=== PATIENT | female | born 1935 | race Caucasian/White ===

== ENCOUNTER 2020-02-02 15:55 | Outpatient (CLI) | payer MEDICARE, SELFPAY ==
--- NOTE | ~2020-02-02 | US_ITS ---
EXAMINATION: US venous doppler [facility] EXAM DATE: 02/02/2020 16:38 INDICATION: Left calf pain. TECHNIQUE: Multiple grayscale, color flow and Doppler images of the left lower extremity deep venous system were obtained and reviewed. There is no prior study for comparison. FINDINGS: The left common femoral, femoral and profunda veins demonstrate normal color flow, respirat ory variation, augmentation and compressibility. Compressibility, color flow confirmed within the le ft popliteal, posterior tibial, peroneal, and greater saphenous veins. 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 IMPRESSION: 1. No left lower extremity deep venous thrombosis. Reviewed, dictated and finalized at location A.
== END 2020-02-02 15:56 | disposition home or self-care (01) ==
LOC: ANHIMG 16:09
PROVIDERS: PCP Nurse Practitioner Adult Health; Visit Provider Nurse Practitioner Adult Health
DX: M79.662 Pain in left lower leg (principal)
CPT/HCPCS: 93971

== ENCOUNTER → 2022-11-23 10:58 | Outpatient (CLI) | payer MEDICARE, SELFPAY ==
--- NOTE | ~2022-11-23 | MR_ITS ---
EXAMINATION: MR lumbar spine wo con DATE: 11/23/2022 11:37 INDICATION: Lumbar radiculopathy TECHNIQUE: Magnetic resonance imaging (MRI) of the lumbar spine was performed without intravenous con trast. Sequences included sagittal T2-weighted FSE, sagittal T2-weighted FS FSE, sagittal T1-weighted FSE, and axial T2-weighted FSE. COMPARISON: None FINDINGS: 17 degree thoracolumbar levoscoliosis with mild rotational component. Sagittal alignment is normal. V ertebral body heights are normal. Severe disc height loss with degenerative endplate changes at L4-L5 . Mild to moderate right-sided predominant disc height loss at L2-L3. Mild disc height loss at L3-L4 and mild right-sided disc height loss at 1201 and L1-L2. Disc desiccation without significant disc he ight loss at L5-S1. Normal bone marrow signal. 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 T he conus medullaris terminates at L2. There is normal signal in the caudal spinal cord. Paravertebral soft tissues are unremarkable. The following disc levels are specifically discussed: T12-L1: Disc is bulging. There is mild right and moderate left facet joint osteoarthritis. There is m inimal bilateral neural foraminal stenosis. There is mild central canal stenosis. L1-L2: Disc is bulging. There is mild to moderate bilateral facet joint osteoarthritis. There is mild bilateral neural foraminal stenosis. There is mild central canal stenosis. L2-L3: Disc is bulging. The previously seen left subarticular zone disc extrusion is no longer identi fied. There is moderate left and mild to moderate right facet joint osteoarthritis. There is mild codi ateral neural foraminal stenosis. There is mild central canal stenosis. L3-L4: Disc is bulging with annular fissure. There is hypertrophy of the ligamentum flavum. There is mild to moderate bilateral facet joint osteoarthritis. There is mild to moderate bilateral neural for aminal stenosis. There is moderate central canal stenosis. L4-L5: Disc is bulging with annular fissure and small endplate osteophytes. There is moderate bilater al facet joint osteoarthritis. There is old right and moderate left neural foraminal stenosis. There is mild central canal stenosis along with narrowing of the left lateral recess. L5-S1: Disc is bulging. There is moderate right and severe left facet joint osteoarthritis. There is mild right and moderate left neural foraminal stenosis. There is mild central canal stenosis. IMPRESSION: 1. Thoracolumbar levoscoliosis with interval progression of severe lumbar spondylosis. Reviewed, dictated and finalized at location A. [facility] IMPRESSION: 1. Thoracolumbar levoscoliosis with interval progression of severe lumbar spond ylosis.
== END ==
PROVIDERS: PCP Nurse Practitioner Family; Visit Provider Nurse Practitioner Family
DX: M54.16 Radiculopathy, lumbar region (principal); M41.85 Other forms of scoliosis, thoracolumbar region; M43.06 Spondylolysis, lumbar region
CPT/HCPCS: 72148

== ENCOUNTER 2023-08-06 00:21 | Day surgery (SDC) | payer MEDICARE, SELFPAY ==
[2023-08-02 08:33] VITALS: BMI 32.0
--- NOTE | 2023-08-03 10:28 | SUR.PREOP ---
Patient called regarding upcoming procedure. Reviewed preop instructions, appointment times, and procedure prep.
[2023-08-06 07:25] VITALS: BP 170/75; PULSE 74; RESP 20; TEMP 36.1; O2SAT 97; BMI 32.2
[2023-08-06] MEDS: LACTATED RINGERS 1,000 ML 150 ML IV CONT (07:42)
--- NOTE | 2023-08-06 08:13 | WPDANESEPPF ---
Anes - Initial Pre Proc Eval Procedure: Operation Date: 08/06/23 08:30 Proposed Procedures p Esophagogastroduodenoscopy - Ben Nation MD Date/Time: 08/06/23 08:13 Surgeon: Ben Nation MD Pre Op Diagnosis: dysphagia Patient Data Age: 88 Gender: F Height: 1.6 m Weight: 82.5 kg Last Vital Signs Temp 96.9 F L 08/06/23 07:25 Pulse 74 08/06/23 07:25 Resp 20 08/06/23 07:25 BP 170/75 H 08/06/23 07:25 Pulse Ox 97 08/06/23 07:25 O2 Del Method Room Air 08/06/23 07:25 Allergies Allergy/AdvReac Type Severity Reaction Status Date / Time Sulfa (Sulfonamide Allergy Unknown Rash Verified 08/06/23 07:24 Antibiotics) NKFA Allergy Unknown Unknown Uncoded 08/06/23 07:24 Home Medications Medication Instructions Recorded Confirmed Type amlodipine 10 mg tablet 10 mg PO DAILY 08/02/23 08/06/23 History aspirin 81 mg tablet 81 mg PO DAILY 08/02/23 08/06/23 History losartan 100 mg tablet 100 mg PO DAILY 08/02/23 08/06/23 History omega 7-bjc-ham-fish oil 60 mg-90 1 cap PO DAILY 08/02/23 08/06/23 History mg-500 mg capsule (Fish Oil) simvastatin 20 mg tablet 20 mg PO DAILY 08/02/23 08/06/23 History Patient hx anesthesia problems: none Family hx anesthesia problems: none Results Review: All pre-operative results and documents have been reviewed as part of the pre-operative evaluation. FOR[facility]LY [facility], [facility] Social History Social History Smoking status: Never smoker Substance use type: does not use Living arrangements: alone Anes - Eval Final PreProcedure Day of Procedure 08/06/23 08:13 Patient weight: obese Heart: regular rate and rhythm Lungs: clear to auscultation Airway: Mallampati scale class III Neurological: alert and oriented Last oral intake: >/= 8 hours ASA classification: III Emergent: no Anesthetic plan: proceed Anesthesia type and monitoring: general GIVS and standard monitoring Results Review: All pre-operative results and documents have been reviewed as part of the pre-operative evaluation. Informed Consent: The patient's anesthetic plan and its attendant risks and benefits were discussed with the patient/family/POA. Questions were solicited and answers provided to the satisfaction of the patient/family/POA.
--- NOTE | 2023-08-06 08:23 | PM.HPGS ---
History of Present Illness History of Present Illness Consent: Risks, benefits, and alternatives have been discussed and questions answered. Patient agrees to proceed with procedure. Chief complaint: epigastric pain Narrative: Gricel Hernandez is a 88 year old female here for post prandial epigastric pain for 1 month, never had egd Review of Systems Constitutional: Constitutional: Denies headache(s) and Denies weakness Eyes: Eyes: Denies blurry vision ENT: Reports Normal hearing present, Denies headache(s) and Denies neck pain Cardiovascular: Cardiovascular: Denies chest pain and Denies dyspnea Respiratory: Respiratory: Denies dyspnea Gastrointestinal: Gastrointestinal: Reports no additional gastrointestinal complaints Genitourinary: Genitourinary: Denies dysuria Musculoskeletal: Musculoskeletal: Denies neck pain Integumentary/Breasts: Skin/Breast: Denies dry skin Neurologic: Reports Normal hearing present, Denies headache(s) and Denies weakness Psychiatric: Psychiatric: Denies anxiety Endocrine: Endocrine: Denies change in body appearance Hematologic/Lymphatic: Hematologic/Lymphatic: Denies easy bleeding Allergic/Immunologic: Allergic/Immunologic: Denies urticaria PMFSH Past Medical History Medical History (Updated 08/06/23 @ 08:24 by Ben Nation MD) Epigastric pain Social History Social History Smoking status: Never smoker Substance use type: does not use Living arrangements: alone Meds Home Medications and Allergies Home Medications Medication Instructions Recorded Confirmed Type amlodipine 10 mg tablet 10 mg PO DAILY 08/02/23 08/06/23 History aspirin 81 mg tablet 81 mg PO DAILY 08/02/23 08/06/23 History losartan 100 mg tablet 100 mg PO DAILY 08/02/23 08/06/23 History omega 9-zjy-zra-fish oil 60 mg-90 1 cap PO DAILY 08/02/23 08/06/23 History mg-500 mg capsule (Fish Oil) simvastatin 20 mg tablet 20 mg PO DAILY 08/02/23 08/06/23 History Allergies Allergy/AdvReac Type Severity Reaction Status Date / Time Sulfa (Sulfonamide Allergy Unknown Rash Verified 08/06/23 07:24 Antibiotics) NKFA Allergy Unknown Unknown Uncoded 08/06/23 07:24 Vital Signs Vital Signs - 24 hr 08/06/23 07:25 Temperature 96.9 F L Pulse Rate 74 Respiratory Rate 20 Blood Pressure 170/75 H Pulse Oximetry 97 Oxygen Delivery Room Air Exam Const: General: comfortable and no acute distress HENMT: Face/Nose/Sinus: Normal nares present Eyes: General: appearance normal, both eyes and all related structures Neck: Neck: no JVD Resp: Auscultation: clear to auscultation bilaterally Cardio: Rate: regular rate Rhythm: regular rhythm GI: Inspection: non-distended GI Palp: Yes Soft to palpation Skin: General skin exam: normal color Neuro: General: gait normal Speech: normal speech Extrem: General: normal to inspection Psych: Mental Status: mental status grossly normal Assessment and Plan Assessment and plan (1) Epigastric pain: Code(s): R10.13 - Epigastric pain Status: Acute Assessment and Plan: egd with bx
[2023-08-06 08:38] VITALS: BP 119/66; PULSE 71; RESP 10; O2SAT 96
[2023-08-06 08:48] VITALS: BP 117/65; PULSE 71; RESP 11; O2SAT 96
[2023-08-06 08:58] VITALS: BP 134/65; PULSE 67; RESP 11; O2SAT 98
== END 2023-08-06 09:09 | disposition home or self-care (01) ==
PROVIDERS: PCP Nurse Practitioner Family; Visit Provider Internal Medicine Gastroenterology
PROC: 0DJ08ZZ Inspection of Upper Intestinal Tract, Via Natural or Artificial Opening Endoscopic (ICD-10-PCS; CPT 43235; principal; 2023-08-06 08:30)
DX: K29.50 Unspecified chronic gastritis without bleeding (principal); K22.2 Esophageal obstruction; K21.00 Gastro-esophageal reflux disease with esophagitis, without bleeding; K44.9 Diaphragmatic hernia without obstruction or gangrene; E66.9 Obesity, unspecified; Z68.32 Body mass index [BMI] 32.0-32.9, adult; Z79.82 Long term (current) use of aspirin
CPT/HCPCS: 43249; 43239; 87081; 88305; C1726; J2704; J7120

== ENCOUNTER 2024-03-05 09:37 | Outpatient (CLI) | payer MEDICARE, SELFPAY ==
[2024-03-05 12:42] LABS: Basophils Absolute Auto 0.1 K/mm3 (0.0-0.1); Basophils Percent Auto 1.7 % (0.2-1.2); Eosinophils Absolute Auto 0.1 K/mm3 (0-0.3); Hematocrit 41.4 % (37.0-47.0); Hemoglobin 13.5 g/dL (12.0-15.0); Immature Granulocyte Absolute 0.04 K/mm3 (0.00-0.031); Immature Granulocyte Percent A 0.6 % (0-0.5); Lymphocytes Percent Auto 17.2 % (18.3-44.2); Mean Corpuscular HGB Conc 32.6 g/dl (32-36); Mean Corpuscular Hemoglobin 30.8 pg (26-34); Mean Corpuscular Volume 94.3 fl (80-100); Mean Platelet Volume 10.2 fl (7.4-10.4); Monocytes Absolute Auto 0.5 K/mm3 (0.1-0.6); Monocytes Percent Auto 7.8 % (2.6-8.5); Neutrophils Absolute Auto 4.5 K/mm3 (1.3-6.7); Neutrophils Percent Auto 70.7 % (45.5-73.1); Platelet Count Result 296 k/mm3 (150-375); Red Blood Count 4.39 M/mm3 (4.2-5.4); Red Cell Distribution Width 13.8 % (11.5-14.5); White Blood Count 6.4 K/mm3 (4.5-10.0)
[2024-03-05 12:58] LABS: Alanine Aminotransferase 11 U/L (6-35); Albumin Level 4.4 g/dL (3.5-5.1); Alkaline Phosphatase 60 U/L (38-126); Anion Gap 7 mmol/L (4-12); Aspartate Amino Transferase 45 U/L (14-36); Bilirubin,Total 0.7 mg/dL (0.2-1.3); Blood Urea Nitrogen 24 mg/dL (7-17); Calcium 9.4 mg/dL (8.4-10.2); Carbon Dioxide 29 mmol/L (22-30); Chloride 106 mmol/L (98-107); Cholesterol 203 mg/dL (0-200); Estimated Glomerular Filt Rate 59; Glucose 88 mg/dL (65-110); HDL Direct 53 mg/dL; Potassium 4.1 mmol/L (3.4-5.0); Sodium 142 mmol/L (137-145); Triglycerides 250 mg/dL (<150)
[2024-03-05 13:09] LABS: LDL Cholesterol Direct 110 mg/dL
[2024-03-05 18:13] LABS: Vitamin D 25 Hydroxy 48.9 ng/mL
== END 2024-03-05 09:38 | disposition home or self-care (01) ==
PROVIDERS: PCP Family Medicine; Visit Provider Nurse Practitioner
DX: E78.2 Mixed hyperlipidemia (principal); I10 Essential (primary) hypertension; E55.9 Vitamin D deficiency, unspecified
CPT/HCPCS: 36415; 80053; 80061; 82306; 85025

== ENCOUNTER 2024-03-24 10:11 | Emergency (ER) | payer MEDICARE, SELFPAY ==
[2024-03-24] VITALS (12 sets, daily range): BP systolic 121–148; BP diastolic 62–65; PULSE 76–93; RESP 18–20; TEMP 36.8; O2SAT 95–99
--- NOTE | ~2024-03-24 | CT_ITS ---
EXAMINATION: CT abdomen pelvis w con DATE: 03/24/2024 14:33 INDICATION: Lower abdominal pain and diarrhea TECHNIQUE: Computed tomography (CT) of the abdomen and pelvis was performed with 100 mL Omnipaque-350 intravenous contrast. Automated exposure control and iterative reconstruction technique were employe d. The dose-length product was 775.70 mGy-cm. COMPARISON: None FINDINGS: Mild dependent atelectasis in the bilateral lower lobes as well as mild left basilar atelectasis juli g the elevated left hemidiaphragm. Heart size is normal. No pericardial or pleural effusion. Moderate -sized sliding-type hiatal hernia. Mild intra and extra hepatic biliary ductal dilation with common b ile duct measuring 8 mm in diameter. There is also mild dilation of the gallbladder measures up to 4. 3 cm with no gallbladder wall thickening or pericholecystic inflammatory stranding to suggest acute c holecystitis. There are few splenic calcific location consistent with old granulomatous disease. Panc reas, bilateral adrenal glands and left kidney are normal. 8 mm right renal cyst. There is moderate c olonic diverticulosis with a sigmoid predominance without focal adjacent inflammatory change to sugge st diverticulitis. There is diffuse wall thickening and associated minimal stranding of the pericolon ic fat throughout the colon consistent with diffuse colitis. Small bowel and appendix are normal. Shad dder is normal. The uterus is not identified and has likely been surgically resected. There is calcif ied atherosclerosis of the normal caliber aorta and many of the other arteries.. 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 No free intraperitoneal gas or fluid. No pathologically enlarged abdominal or pelvic lymphadenopathy. 25 degree thoracolumbar levoscoliosis with severe spon dylosis. IMPRESSION: 1. Diffuse colitis most likely either infectious or inflammatory in etiology. 2. Mild intra and extra hepatic biliary ductal dilation without evident obstructing stone or mass. Co rrelate with liver function tests and could consider further evaluation with MRCP as clinically indic ated. 3. Moderate-sized sliding-type hiatal hernia. 4. 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 Reviewed, dictated and finalized at location B. IMPRESSION: 1. Diffuse colitis most likely either infectious or inflammatory in etiology. 2. Mild intra and extra hepatic biliary ductal dilation without evident obstruc ting stone or mass. Correlate with liver function tests and could consider furt her evaluation with MRCP as clinically indicated. 3. Moderate-sized sliding-type hiatal hernia. 4. 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
--- NOTE | 2024-03-24 13:22 | ED.NAVMDI ---
HPI - Nausea/Vomiting/Diarrhea General Chief complaint: Nausea/Vomiting/Diarrhea Stated complaint: diarrhea since Time Seen by Provider: 03/24/24 12:50 Source: patient, family, RN notes reviewed and old records reviewed Mode of arrival: ambulatory Limitations: no limitations History of Present Illness HPI Narrative: This is an 88 year old female who presents for evaluation of nausea and diarrhea. PAtient lives in a [place] apartment. She reports she developed diarrhea , nausea, and headache on after eating hot dog and desert. She has continued to have multiple episodes of diarrhea today. Her diarrhea was initially all watery and it has gradually thickened to involve stool. She also notes seeing blood only when she wipes. She denies bloody stool in toilet. She is unsure of fever, bloating. She reports nausea and intermittent diffuse abdominal pain. She has come to ER because she can not tolerate her pain any more. She denies pain currently. She denies sick contacts. MD elicited complaint: nausea and diarrhea Related Data Home Medications Medication Instructions Recorded Confirmed aspirin 81 mg tablet 81 mg PO DAILY 08/02/23 02/27/24 losartan 100 mg tablet 100 mg PO DAILY 08/02/23 02/27/24 omega 0-ptu-wes-fish oil 60 mg-90 1 cap PO DAILY 08/02/23 02/27/24 mg-500 mg capsule (Fish Oil) simvastatin 20 mg tablet 20 mg PO DAILY 08/02/23 02/27/24 acrnffng-cbqaenf-mnnq-lutein tablet tablet PO 11/28/23 02/27/24 Allergies Allergy/AdvReac Type Severity Reaction Status Date / Time Sulfa (Sulfonamide Allergy Unknown Rash Verified 03/24/24 10:15 Antibiotics) NKFA Allergy Unknown Unknown Uncoded 03/24/24 10:15 Review of Systems Constitutional: Constitutional: Reports fatigue, Denies fever(s) and Reports weakness ENT: Denies sore throat Cardiovascular: Cardiovascular: Denies chest pain, Denies syncope, Denies rapid heart rate, Denies irregular heart rhythm, Denies leg edema and Denies dyspnea Respiratory: Respiratory: Denies chest congestion, Denies hemoptysis, Denies excessive phlegm production and Denies dyspnea Gastrointestinal: Gastrointestinal: Reports abdominal pain, Denies hematochezia, Reports diarrhea, Reports nausea and Denies vomiting Genitourinary: Genitourinary: Denies hematuria and Denies dysuria Musculoskeletal: Musculoskeletal: Reports back pain, Denies joint swelling, Denies loss of height and Denies muscle weakness Neurologic: Denies syncope, Denies focal weakness and Denies weakness PMFSH Past Medical History Medical History (Updated 03/24/24 @ 15:48 by Narcisa Story MD) Epigastric pain Gastritis determined by endoscopy Hyperlipidemia Hypertension Lumbar spondylosis Surgical History Surgical History H/O: hysterectomy History of bladder surgery Family History Family History Father Lung cancer Social History Social History Smoking status: Never smoker Alcohol intake: current Substance use: never Substance use type: does not use Do You Feel Safe in your Home?: Yes Lack of Transportation: No Lack of Food: Never True Current Housing: I Have Housing Concerned About Future Housing: No Difficulty Paying Gas/Electric Bills: No Difficulty Paying for Meds: No Currently Unemployed: No Education: High School Diploma/GED Difficulty w/ Childcare or Family Care: No Living arrangements: alone Gender identity (if verbalized by the patient): Female Sexual Orientation (if Verbalized by the Patient): Straight or Heterosexual Spiritual care concerns: No Agree to blood products: Yes Exam Const: General: no acute distress and alert Nutritional Appearance: well nourished Orientation/consciousness: patient oriented x3 Limitations: no limitations HENMT: Head: norm
[2024-03-24 13:32] LABS: Basophils Percent Auto 0.5 % (0.2-1.2); Hematocrit 35.3 % (37.0-47.0); Hemoglobin 12.3 g/dL (12.0-15.0); Immature Granulocyte Absolute 0.09 K/mm3 (0.00-0.031); Immature Granulocyte Percent A 1.1 % (0-0.5); Lymphocytes Absolute Auto 0.92 K/mm3 (0.9-3.2); Lymphocytes Percent Auto 11.6 % (18.3-44.2); Mean Corpuscular HGB Conc 34.8 g/dl (32-36); Mean Corpuscular Hemoglobin 31.1 pg (26-34); Mean Corpuscular Volume 89.1 fl (80-100); Mean Platelet Volume 9.5 fl (7.4-10.4); Monocytes Absolute Auto 1.2 K/mm3 (0.1-0.6); Monocytes Percent Auto 15.7 % (2.6-8.5); Neutrophils Absolute Auto 5.6 K/mm3 (1.3-6.7); Neutrophils Percent Auto 71.1 % (45.5-73.1); Platelet Count Result 214 k/mm3 (150-375); Red Blood Count 3.96 M/mm3 (4.2-5.4); Red Cell Distribution Width 13.7 % (11.5-14.5); White Blood Count 7.9 K/mm3 (4.5-10.0)
[2024-03-24] MEDS: ONDANSETRON INJ 4 MG/2 ML VIAL IV PUSH (13:34)
[2024-03-24] MEDS: SODIUM CHLORIDE 0.9% IV 1,000 ML 999 ML IV CONT (13:34)
[2024-03-24 13:46] LABS: Alanine Aminotransferase 18 U/L (6-35); Albumin Level 3.8 g/dL (3.5-5.1); Alkaline Phosphatase 47 U/L (38-126); Anion Gap 8 mmol/L (4-12); Aspartate Amino Transferase 39 U/L (14-36); Bilirubin,Total 0.7 mg/dL (0.2-1.3); Blood Urea Nitrogen 14 mg/dL (7-17); Calcium 9.1 mg/dL (8.4-10.2); Carbon Dioxide 27 mmol/L (22-30); Chloride 97 mmol/L (98-107); Estimated CRCL calculation 39 ml/min; Estimated Glomerular Filt Rate 59; Glucose 102 mg/dL (65-110); Lactic Acid Reflex 1.1 mmol/L (0.7-2.0); Lipase 51 U/L (23-300); Potassium 3.1 mmol/L (3.4-5.0); Sodium 132 mmol/L (137-145)
[2024-03-24 13:52] LABS: Appearance Urine Turbid (Clear); Bacteria Urine 4+ /hpf; Bilirubin Urine 3+ (Negative); Blood Urine 2+ (Negative); Color Urine Dark Yellow (Yellow); Glucose Urine UA Negative (Negative); Ketones Urine Trace mg/dL (Negative); Leukocyte Esterase Ur 3+ LEU/UL (Negative); Need Manual Microscopic Reviewed; Nitrate Urine Positive (Negative); Protein Urine 3+ mg/dL (Negative); RBC Urine 51-100 /hpf (0-2); Specific Grav Ur 1.018 (1.001-1.035); Squamous Epithelial Cell Urine None Seen /hpf (Few); WBC Urine 21-50 /hpf (0-3); pH Urine 6.5 (5.0-9.0)
[2024-03-24 13:54] LABS: Add Urine Microscopic? YES
[2024-03-24 14:06] LABS: Platelet Estimate Adequate (Adequate); Schistocytes None Seen
[2024-03-24] MEDS: POTASSIUM CHLORIDE 20 MEQ ER TABLET 40 MEQ PO (15:15)
== END 2024-03-24 16:09 | disposition home or self-care (01) ==
PROVIDERS: Emergency Provider General Practice; PCP Family Medicine
DX: K52.9 Noninfective gastroenteritis and colitis, unspecified (principal); N39.0 Urinary tract infection, site not specified; E86.0 Dehydration; E87.6 Hypokalemia; I10 Essential (primary) hypertension; E78.5 Hyperlipidemia, unspecified; Z90.710 Acquired absence of both cervix and uterus; Z79.82 Long term (current) use of aspirin; Z79.899 Other long term (current) drug therapy
CPT/HCPCS: 36415; 74177; 80053; 81001; 83605; 83690; 85025; 87045; 87077; 87086; 87088; 87186; 87427; 87449; 96361; 96374; 99284; A9270; J2405; J7030; Q9967

== ENCOUNTER 2024-06-19 10:23 | Outpatient (CLI) | payer MEDICARE, SELFPAY ==
[2024-06-19 13:37] LABS: Basophils Absolute Auto 0.1 K/mm3 (0.0-0.1); Basophils Percent Auto 1.9 % (0.2-1.2); Eosinophils Absolute Auto 0.1 K/mm3 (0-0.3); Eosinophils Percent Auto 2.4 % (0-4.4); Hemoglobin 13.4 g/dL (12.0-15.0); Immature Granulocyte Absolute 0.04 K/mm3 (0.00-0.031); Immature Granulocyte Percent A 0.7 % (0-0.5); Lymphocytes Percent Auto 21.9 % (18.3-44.2); Mean Corpuscular HGB Conc 33.5 g/dl (32-36); Mean Corpuscular Hemoglobin 31.6 pg (26-34); Mean Corpuscular Volume 94.3 fl (80-100); Mean Platelet Volume 10.3 fl (7.4-10.4); Monocytes Absolute Auto 0.5 K/mm3 (0.1-0.6); Monocytes Percent Auto 9.1 % (2.6-8.5); Neutrophils Absolute Auto 3.8 K/mm3 (1.3-6.7); Platelet Count Result 279 k/mm3 (150-375); Red Blood Count 4.24 M/mm3 (4.2-5.4); Red Cell Distribution Width 13.6 % (11.5-14.5); White Blood Count 5.9 K/mm3 (4.5-10.0)
[2024-06-19 13:52] LABS: Alanine Aminotransferase 10 U/L (6-35); Albumin Level 4.5 g/dL (3.5-5.1); Alkaline Phosphatase 71 U/L (38-126); Aspartate Amino Transferase 46 U/L (14-36); Bilirubin,Total 0.6 mg/dL (0.2-1.3)
[2024-06-19 15:08] LABS: Iron 93 ug/dL (37-170)
[2024-06-19 15:17] LABS: Percent Iron Saturation 30 % (20-50)
[2024-06-19 22:47] LABS: Folic Acid > 20.0 ng/mL (2.76->20)
== END 2024-06-19 10:24 | disposition home or self-care (01) ==
LOC: ANHGOSHLAB 10:25
PROVIDERS: PCP Nurse Practitioner; Visit Provider Nurse Practitioner
DX: R74.8 Abnormal levels of other serum enzymes (principal); L65.9 Nonscarring hair loss, unspecified; L60.8 Other nail disorders; I10 Essential (primary) hypertension; R10.13 Epigastric pain
CPT/HCPCS: 36415; 80076; 82607; 82728; 82746; 83540; 83550; 84443; 85025

== ENCOUNTER 2025-02-16 10:59 | Emergency (ER) | payer MEDICARE, SELFPAY ==
--- NOTE | ~2025-02-16 | XR_ITS ---
XR knee RT 3V Ordering provider: Rigo Douglas APRN History: . medial Rt knee pain for 1 week after dancing . Comparison: FINDINGS: BONES: No acute fracture or dislocation. JOINT SPACES: Slight narrowing of the medial compartment. Marginal osteophytes are noted in the knee and patella SOFT TISSUES: Vascular calcification. IMPRESSION: No acute osseous abnormality right knee. Mild osteoarthritic changes. Reviewed, dictated and finalized at location A.
[2025-02-16 11:03] VITALS: BP 174/67; PULSE 72; RESP 16; TEMP 36.8; O2SAT 97
--- NOTE | 2025-02-16 11:38 | ED.EXTPRO ---
HPI - Extremity Problem General Chief complaint: Extremity Problem,Nontraumatic Stated complaint: Knee Pain Time Seen by Provider: 02/16/25 11:25 Source: patient and RN notes reviewed Mode of arrival: ambulatory Limitations: no limitations History of Present Illness HPI Narrative: 89-year-old female presents Express Care complaining of right knee pain. Patient stated the pain started 1 week ago. Patient believe she is over did it to her knee. Patient said she has been dancing a lot at the assisted living that she resides that for daily dancing events. Patient reports having medial knee pain. Patient is able to bear weight on her right leg. Patient says is worse with bending her knee. Patient has been using topical cream and ice without relief for pain. Patient denies any fall or injury to her right knee. Denies any numbness or tingling. Related Data Home Medications Medication Instructions Recorded Confirmed Last Taken Type aspirin 81 mg tablet 81 mg PO DAILY 08/02/23 12/15/24 08/05/23 History omega 0-nte-ycy-fish oil 60 mg-90 1 cap PO DAILY 08/02/23 12/15/24 08/05/23 History mg-500 mg capsule (Fish Oil) cgjbebhe-jjebxwq-cycb-lutein tablet tablet PO 11/28/23 12/15/24 Unknown History ALLERGY RELIEF BYNJUTH 11/04/24 12/15/24 Unknown History b complex BYNJUTH 11/04/24 12/15/24 Unknown History citracal BYNJUTH 11/04/24 12/15/24 Unknown History Allergies Allergy/AdvReac Type Severity Reaction Status Date / Time Sulfa (Sulfonamide Allergy Unknown Rash Verified 02/16/25 11:09 Antibiotics) Review of Systems Review of Systems: CONSTITUTIONAL: Denies fever, chills, or sweats. EYES: Denies visual changes, redness, or discharge. ENT: Denies rhinorrhea, congestion, sore throat, or otalgia. CARDIOVASCULAR: Denies chest pain, palpitations, or edema. RESPIRATORY: Denies cough or dyspnea. GASTROINTESTINAL: Denies abdominal pain, nausea, vomiting, or diarrhea. GENITOURINARY: Denies dysuria or hematuria. SKIN: Denies rash, wound, or itching. MUSCULOSKELETAL: Denies back pain, joint pain, or myalgia. Positive for knee pain NEUROLOGIC: Denies headache, numbness, or weakness. PSYCHIATRIC: Denies anxiety or depression. All other systems reviewed are negative, except as documented in HPI. [facility] Past Medical History Medical History Gastritis determined by endoscopy Hyperlipidemia Lumbar spondylosis Hypertension Epigastric pain Surgical History Surgical History H/O: hysterectomy History of bladder surgery Family History Family History Father Lung cancer Social History Social History Smoking status: Never smoker Alcohol intake: current Substance use: never Substance use type: does not use Do You Feel Safe in your Home?: Yes Lack of Transportation: No Lack of Food: Never True Current Housing: I Have Housing Concerned About Future Housing: No Difficulty Paying Gas/Electric Bills: No Difficulty Paying for Meds: No Currently Unemployed: No Education: High School Diploma/GED Difficulty w/ Childcare or Family Care: No Living arrangements: alone Gender identity (if verbalized by the patient): Female Sexual Orientation (if Verbalized by the Patient): Straight or Heterosexual Spiritual care concerns: No Agree to blood products: Yes Comments At the time of my signature, I reviewed and agree with the nursing past medical, surgical, social, and family history. There is no relevant family history pertinent to the patient complaint. Exam Narrative: GENERAL: This is a well-nourished, well-developed adult, in no apparent distress. They are non ill-appearing, nontoxic appearing. HEAD: normocephalic, atraumatic. EYES: Sclera clear/white. Vision is grossly intact. Conjunctiva normal. Extraocular movement intact. EARS: External ears normal Hearing grossly intact. NOSE: External nose normal THROAT: Mucous membranes moist NECK: Neck supple CARDIOVASCULAR: Regular rate and rhythm RESPIRATORY: Respiratory rate normal, respiratory effort nonlabored, no respiratory distress NEURO: awake, alert, and oriented to person, place and time. There were no obvious focal neurologic abnormalities. EXTREMITIES: Right knee No obvious deformity, injury, swelling, bruising, redness. Mild pain with Normal range of motion of knee. No bony tenderness. Capillary refill less than 3 seconds. Right Pedal pulse Pulse 2 +palpable. Normal sensation. Neurovascular status intact distal injury. No valgus or varus laxity. No palpable cord. BACK: Nontender without deformity. Course Course Emergency Course: Portions of this record may have been created with voice recognition software Level of Care: Express Care Visit Vital Signs Vital signs: Vital Signs Temperature 98.2 F 02/16/25 11:03 Pulse Rate 72 02/16/25 11:03 Respiratory Rate 16 02/16/25 11:03 Blood Pressure 174/67 H 02/16/25 11:03 Pulse Oximetry 97 02/16/25 11:03 Oxygen Delivery Room Air 02/16/25 11:03 Temperature 98.2 F 02/16/25 11:03 Pulse Rate 72 02/16/25 11:03 Respiratory Rate 16 02/16/25 11:03 Blood Pressure 174/67 H 02/16/25 11:03 Pulse Oximetry 97 02/16/25 11:03 Oxygen Delivery Room Air 02/16/25 11:03 Reviewed MDM - Extremity (Nontraumatic) MDM Narrative Medical decision making narrative: X-ray showed no evidence of fracture or effusion or any other acute findings. Mild arthritis changes were noted to the x-ray. Likely patient has strained her right knee from dancing. Patient given Alexsander wrap for comfort. Discussed physical exam findings. Advised supportive measures and signs/symptoms to go to the ER. Pt is appropriate for outpt treatment and f/u. Differential Diagnosis Differential diagnosis: Likely other (Knee strain, arthritis, fracture, ligament injury) Imaging Data Radiologist's impression: ITS Impressions Knee X-Ray 02/16/25 11:46 IMPRESSION: No acute osseous abnormality right knee. Mild osteoarthritic changes. Critical Care Time Critical Care Time Critical Care Time: No Discharge Plan Discharge Clinical Impression: Knee injury Qualifiers: Encounter type: initial encounter Laterality: right Qualified Code(s): S89.91XA - Unspecified injury of right lower leg, initial encounter Patient Disposition: Home Condition: Stable Instructions: Knee Pain (ED) Additional Instructions: Your x-ray was negative for any fractures or any other acute findings. There is mild arthritis changes noted in the x-ray. Rest and elevate the leg; bear weight as tolerated Apply ice 15-20 minute intervals several times a day Keep keep her knee wrapped with an Alexsander wrap for compression. Who you may take Tylenol or ibuprofen as needed for pain. Follow up with your primary care provider or an orthopedist as needed in 1-2 weeks if pain persists. Patient Language: Japanese Prescriptions: No Action rcqnpspa-qzmsyoj-dplx-lutein Tablet PO b complex BYMOUTH citracal BYMOUTH ALLERGY RELIEF BYMOUTH omeprazole 40 mg capsule,delayed release(DR/EC) 40 mg PO .daily 90 Days Qty: 90 4RF Adult Aspirin 81 mg Tablet 81 mg PO DAILY omega 0-wxf-zhe-fish oil [Fish Oil] 60-90-500 mg Capsule 1 cap PO DAILY losartan 100 mg tablet 100 mg PO DAILY Qty: 90 1RF simvastatin 20 mg tablet See Rx Instructions .ROUTE .COMPLEX Qty: 90 1RF Dose Instruction: TAKE 1 TABLET BY MOUTH EVERY DAY Rx Instructions: TAKE 1 TABLET BY MOUTH EVERY DAY amlodipine 10 mg tablet See Rx Instructions .ROUTE .COMPLEX Qty: 90 1RF Dose Instruction: TAKE 1 TABLET BY MOUTH EVERY DAY Rx Instructions: TAKE 1 TABLET BY MOUTH EVERY DAY Follow-up/Referrals: Jenise Flannery NP [Primary Care Provider] - Caleb Chung MD [Physician] - Time of Disposition: 12:00
== END 2025-02-16 12:09 | disposition home or self-care (01) ==
PROVIDERS: PCP Nurse Practitioner
DX: S89.91XA Unspecified injury of right lower leg, initial encounter (principal); X50.3XXA Overexertion from repetitive movements, initial encounter; Y93.41 Activity, dancing; I10 Essential (primary) hypertension; E78.5 Hyperlipidemia, unspecified; M47.816 Spondylosis without myelopathy or radiculopathy, lumbar region; Z79.82 Long term (current) use of aspirin
CPT/HCPCS: 73562; 99213; G0463

== ENCOUNTER 2025-05-15 13:09 | Emergency (ER) | payer MEDICARE, SELFPAY ==
[2025-05-15 13:20] VITALS: BP 131/56; PULSE 71; RESP 16; TEMP 36.6; O2SAT 98
--- NOTE | 2025-05-15 13:41 | ED_ITS ---
HPI - Skin/Abscess/Foreign Bdy General Chief complaint: Skin/Abscess/Foreign Body Stated complaint: RASH Time Seen by Provider: 05/15/25 13:33 Source: patient and RN notes reviewed Mode of arrival: ambulatory Limitations: no limitations History of Present Illness HPI narrative: Patient presents today complaining of itching and irritation to the left frontal scalp, left lower forehead, left upper eyelid, and left nose since yesterday. Reports it feels like her hair hurts. Denies any vision changes. No OTC treatment prior to arrival. She has had shingles vaccine Related Data Home Medications ?Medication ?Instructions ?Recorded ?Confirmed ?Last Taken ?Type aspirin 81 mg tablet 81 mg PO DAILY 08/02/23 04/07/25 08/05/23 History omega 6-hrf-cws-fish oil 60 mg-90 1 cap PO DAILY 08/02/23 04/07/25 08/05/23 History mg-500 mg capsule (Fish Oil) rwnfvjxc-lkrlrzy-kttr-lutein tablet tablet PO 11/28/23 04/07/25 Unknown History ALLERGY RELIEF BYDCUTH 11/04/24 04/07/25 Unknown History b complex BYDCUTH 11/04/24 04/07/25 Unknown History citracal BYDCUTH 11/04/24 04/07/25 Unknown History finasteride 5 mg tablet mg 05/15/25 Unknown History Allergies Allergy/AdvReac Type Severity Reaction Status Date / Time Sulfa (Sulfonamide Allergy Unknown Rash Verified 05/15/25 13:27 Antibiotics) [facility] Past Medical History Medical History Gastritis determined by endoscopy Hyperlipidemia Lumbar spondylosis Hypertension Epigastric pain Surgical History Surgical History H/O: hysterectomy History of bladder surgery Family History Family History Father Lung cancer Social History Social History Smoking status: Never smoker Alcohol intake: current Substance use: never Substance use type: does not use Do You Feel Safe in your Home?: Yes Lack of Transportation: No Lack of Food: Never True Current Housing: I Have Housing Concerned About Future Housing: No Difficulty Paying Gas/Electric Bills: No Difficulty Paying for Meds: No Currently Unemployed: No Education: High School Diploma/GED Difficulty w/ Childcare or Family Care: No Living arrangements: alone Gender identity (if verbalized by the patient): Female Sexual Orientation (if Verbalized by the Patient): Straight or Heterosexual Spiritual care concerns: No Agree to blood products: Yes Comments At time of signature, I have reviewed and agree with nursing past medical, surgical, social and family history unless otherwise noted. Please see nursing chart for further information. There is no relevant family history pertinent to the presenting complaint Exam Narrative: GENERAL: Well-appearing, well-nourished, and in no acute distress. HEAD: Normocephalic, atraumatic. EYES: EOMI. PERRL. No redness or drainage. Conjunctivae normal. ENT: Mucous membranes pink and moist.. NECK: Normal AROM. CHEST: No respiratory distress. EXTREMITIES: Normal range of motion. No edema. SKIN: Warm, dry. Capillary refill normal. Normal skin turgor. Faint pink, raised lesion in the left frontal hairline. Skin colored slightly raised lesions to the left forehead. Mildly pink tinge to the left eyelid without rash. Faintly erythematous raised lesion to the tip of the left side of the nose. NEURO: No focal deficits. Alert and oriented x3. Gait steady. PSYCH: Normal affect. No signs of depression or anxiety. Course Course Level of Care: Express Care Visit Vital Signs Vital signs: Vital Signs Temperature 98 F 05/15/25 13:20 Pulse Rate 71 05/15/25 13:20 Respiratory Rate 16 05/15/25 13:20 Blood Pressure 131/56 L 05/15/25 13:20 Pulse Oximetry 98 05/15/25 13:20 Temperature 98 F 05/15/25 13:20 Pulse Rate 71 05/15/25 13:20 Respiratory Rate 16 05/15/25 13:20 Blood Pressure 131/56 L 05/15/25 13:20 Pulse Oximetry 98 05/15/25 13:20 Reviewed MDM - Skin/Abscess/Foreign Bdy MDM Narrative Medical decision making narrative: Any 9-year-old female patient with tender lesions to the scalp and face since yesterday. No OTC treatment prior to arrival. Very faint lesions to the left scalp, forehead, and nose. when considered all together, is likely the beginning of a shingles outbreak. Patient will be placed on a course of valacyclovir and recommend to follow-up with an eye doctor next week to ensure that she does not developed keratitis. Patient states she has an eye doctor appointment either next week or the week after. Instructed to leave it up to next week if it is scheduled later. Patient agrees with plan. Anticipatory guidance given. Vital signs stable. Differential Diagnosis Differential diagnosis: Likely viral exanthem, dermatophytosis, urticaria, herpes zoster, cellulitis, eczema and contact dermatitis Critical Care Time Critical Care Time Critical Care Time: No Discharge Plan Discharge Clinical Impression: Shingles Qualifiers: Herpes zoster complications: without complications Qualified Code(s): B02.9 - Zoster without complications Patient Disposition: Home Condition: Stable Instructions: Shingles (ED) Additional Instructions: Your rash may be due to shingles. Please start the valacyclovir as prescribed. As discussed, please follow-up with your eye doctor next week for evaluation of your eye. Take Tylenol for pain if needed. Your blood pressure was elevated above 120/80 today at Urgent Care. This puts you above the threshold for follow up. Please schedule a followup visit with your personal physician as soon as possible, for further evaluation and treatment. Even blood pressure exceeding 120/80 may indicate pre-hypertension. Patient Language: Andorran Prescriptions: New valacyclovir 1 gram tablet 1,000 mg PO TID 7 Days Qty: 21 0RF No Action finasteride 5 mg tablet xjqggtmv-gupedqy-gals-lutein Tablet PO b complex BYMOUTH citracal BYMOUTH ALLERGY RELIEF BYMOUTH omeprazole 40 mg capsule,delayed release(DR/EC) 40 mg PO .daily 90 Days Qty: 90 4RF aspirin [Adult Aspirin] 81 mg Tablet 81 mg PO DAILY omega 9-uyh-kqh-fish oil [Fish Oil] 60-90-500 mg Capsule 1 cap PO DAILY simvastatin 20 mg tablet See Rx Instructions .ROUTE .COMPLEX Qty: 90 1RF Dose Instruction: TAKE 1 TABLET BY MOUTH EVERY DAY Rx Instructions: TAKE 1 TABLET BY MOUTH EVERY DAY amlodipine 10 mg tablet See Rx Instructions .ROUTE .COMPLEX Qty: 90 1RF Dose Instruction: TAKE 1 TABLET BY MOUTH EVERY DAY Rx Instructions: TAKE 1 TABLET BY MOUTH EVERY DAY losartan 100 mg tablet 100 mg PO DAILY Qty: 90 1RF Follow-up/Referrals: Jenise Flannery NP [Primary Care Provider] - Time of Disposition: 13:43
== END 2025-05-15 13:46 | disposition home or self-care (01) ==
PROVIDERS: Emergency Provider Nurse Practitioner; PCP Nurse Practitioner
DX: B02.9 Zoster without complications (principal); I10 Essential (primary) hypertension; E78.5 Hyperlipidemia, unspecified; M47.816 Spondylosis without myelopathy or radiculopathy, lumbar region; Z79.82 Long term (current) use of aspirin
CPT/HCPCS: 99213; G0463

== ENCOUNTER 2025-06-29 10:03 | Outpatient (CLI) | payer MEDICARE, SELFPAY ==
--- OUTSIDE RECORDS SUMMARY | 2010-07-07 04:15 | XMS_ITS | Continuity of Care Document ---
Author Organization [facility] Address [address] [address] [place] [address] Phone Care Team Providers Care Combination Worker Name Role Phone Allen OD, Thor Unavailable Unavailable Procedures Procedure Date Eye Exam & Treatment Refraction Eye Exam & Treatment Refraction Advance Directives Directive Yes / No Effective Date File Name No Information Encounters Encounter Description Practice Location Reason(s) For Visit Diagnoses Date Provider Providers Copied on Encounter [facility], [id number] [place] [address] [address], [place], [place], [id number], tel:[phone] [facility] No Information 7-201 0 Allen OD Thor. [address] , [address], [place], [place], [facility], [place]. tel:[phone] [facility], [address] [place] [address] [address], [place], [place], [id number], tel:[phone] [facility] No Information 5-200 8 Allen OD Thor. [address] , [address], [place], [address], [place]. tel:[phone] Family History Family Member Type Diagnosis Age At Onset No Information Payers Payer name Insurance type Covered constitution party ID Authoriza tion(s) [place] [id number] Social History Type Description Quantity Date Captured Comments Sex Female Smoking Status No Information Chief Complaint And Reason For Visit No Information Reason For Referral Reason For Referral No Information History Of Present Illness Encounter Date Complaint History Of Prese nt Illness No Information Functional Status Date Functional Assessmen t No Information Instructions Date Instruction Additional Infor mation No Information Assessments Type Assessment Date No Information Patient Care Teams Name Effective Dates (start - stop) Status Members No Information
[2025-06-29 13:01] LABS: Hematocrit 40.6 % (37.0-47.0); Hemoglobin 13.2 g/dL (12.0-15.0); Immature Granulocyte Percent A 0.5 % (0-0.5); Lymphocytes Absolute Auto 1.32 K/mm3 (0.9-3.2); Mean Corpuscular HGB Conc 32.5 g/dl (32-36); Mean Corpuscular Hemoglobin 30.8 pg (26-34); Mean Corpuscular Volume 94.9 fl (80-100); Nucleated Red Blood Cells Absolute Auto 0.000 K/mm3 (0.0-0.012); Nucleated Red Blood Cells Perc 0.0 % (0.0-0.2); Platelet Count Result 298 k/mm3 (150-375); Red Blood Count 4.28 M/mm3 (4.2-5.4); White Blood Count 5.9 K/mm3 (4.5-10.0)
[2025-06-29 13:09] LABS: Alanine Aminotransferase 10 U/L (6-35); Albumin Level 4.1 g/dL (3.5-5.1); Alkaline Phosphatase 63 U/L (38-126); Anion Gap 6 mmol/L (4-12); Aspartate Amino Transferase 42 U/L (14-36); Bilirubin,Total 0.7 mg/dL (0.2-1.3); Blood Urea Nitrogen 19 mg/dL (7-17); Calcium 9.0 mg/dL (8.4-10.2); Carbon Dioxide 29 mmol/L (22-30); Chloride 105 mmol/L (98-107); Cholesterol 197 mg/dL (0-200); Estimated Glomerular Filt Rate 59; Glucose 87 mg/dL (65-110); HDL Direct 52 mg/dL; Magnesium 2.1 mg/dL (1.6-2.3); Potassium 4.0 mmol/L (3.4-5.0); Sodium 140 mmol/L (137-145); Total Protein 7.0 g/dL (6.3-8.2); Triglycerides 210 mg/dL (<150)
[2025-06-29 13:46] LABS: Thyroid Stimulating Hormone 2.040 uIU/mL (0.465-4.680)
== END 2025-06-29 10:04 | disposition home or self-care (01) ==
LOC: ANHGOSHLAB 10:04
PROVIDERS: PCP Internal Medicine; Visit Provider Nurse Practitioner
DX: R07.9 Chest pain, unspecified (principal); I10 Essential (primary) hypertension; E78.2 Mixed hyperlipidemia; E55.9 Vitamin D deficiency, unspecified
CPT/HCPCS: 36415; 80053; 80061; 82306; 83735; 84443; 85025

== ENCOUNTER 2025-07-10 08:06 | Outpatient (CLI) | payer MEDICARE, SELFPAY ==
--- NOTE | ~2025-07-10 | NM_ITS ---
EXAMINATION: NM michael stress w perfusion DATE: 07/10/2025 11:34 INDICATION: Chest pain TECHNIQUE: Rest images were obtained following intravenous administration of 11.2 mCi Tc99m tetrofosmin (Myoview). The patient was infused intravenously with Lexiscan (Regadenoson). Then, 33.7 mCi Tc99m tetrofosmin (Myoview) was administered intravenously, and stress images were obtained. Data was dominick nstructed into short axis and horizontal and vertical long axis SPECT images. Gated SPECT images were also obtained. COMPARISON: None. FINDINGS: There is no definite reversible or fixed perfusion abnormality to suggest ischemia or infarction. There is normal left ventricular chamber size, wall motion and ejection fraction. Left ventricular ejection fraction measures >70%. IMPRESSION: 1. Normal myocardial perfusion at rest and during stress. 2. Left ventricular ejection fraction measuring >70%. Reviewed, dictated and finalized at location A.
--- OUTSIDE RECORDS SUMMARY | 2025-07-10 08:10 | XMS_ITS | Data Portability ---
Author Organization [facility], Main Office Address [address] [place] [address] Care Team Providers Care Box Office Agent Name Role Phone AZIZA HERNANDEZ Primary Care Provider AZIZA HERNANDEZ Referring Provider [phone] Assessment No assessment recorded. Plan of Treatment Reminders Order Date Submit Date Provider Last Modified By Organization Details Last Modified Time Details Appointments None recorded. Lab BMP, serum or plasma 2022 023 [facility] Add On Lab Orders, [address] [place], [address], 3 20:56:16 lipid panel, serum 2022 023 [facility] Add On Lab Orders, [address] [place], [address], 3 20:56:22 hepatic function panel, serum 2022 023 [facility] Add On Lab Orders, [address] [place], [address], 3 20:56:26 BMP, serum or plasma 2022 023 [facility] Add On Lab Orders, [address] [place], [address], 3 14:19:13 lipid panel, serum 2022 023 [facility] Add On Lab Orders, [address] [place], [address], 3 14:19:03 hepatic function panel, serum 2022 023 [facility] Add On Lab Orders, [address] [place], [address], 3 14:19:08 Referral gastroenter ologist referral - pain in chest and upper abd with swallowing. May need EGD. 2022 023 MAYRA pena MD, [address], [address], [place], [address], 09:28:56 Procedures None recorded. Surgeries None recorded. Imaging None recorded. Medication Orders None recorded. Patient TargetsNo targets recorded. Patient Instructions Encounter Date Encounter Id Patient Instructions Last Modified By Organization Details Last Modified Time 01/10/2023 [id number] mo fu CKD, htn , arthritis, swelling in legs, Lipid. Not available 01/10/2023 13:09:14 07/18/2023 [id number] mo fu CKD, htn , arthritis, swelling in legs, Lipid. Not available 07/18/2023 14:22:34 Reason for Referral Past[employer] Referral for Swallowing painful pain in chest and upper abd with swallowing. May need EGD. Referring Physician: Aziza Hernandez, Family Medicine, Encounter Date: 07/18/2023 Results Created Date Observation Date Name Description Value Unit Range Abnormal Flag Note LastModifiedBy Organization Detail LastModifiedTime 02/08/2002/07/2023 LIPID PANEL cholesterol 170 mg/dL 140-19 9 [facility] NSUS RECOM MENDA TION FOR MICHELLE STERO L: ADULT CHILD LOW RISK: <200 <170 BORDE RLINE : <200- 239 ----- HIGH RISK: >240 >200 Not Available [facility] (Lab) [address] [place], [address], 02/07/2023 14:19:03 02/08/20 23 02/07/2023 LIPID PANEL triglyceride s 139 mg/dL 0-150 [facility] NSUS REPOR T RECOM MENDA TION FOR TRIGL YCERI ATIF: ADULT CHILD LOW RISK: <150 ----- BODER LINE: 150-1 99 ----- HIGH RISK: >200 ----- Not Available [facility] (Lab) [address] [place], [address], 02/07/2023 14:19:03 02/08/20 23 02/07/2023 LIPID PANEL HDL cholesterol 60 mg/dL 40- Not Available [facility] (Lab) [address] [place], [address], 02/07/2023 14:19:03 02/08/2002/07/2023 LIPID PANEL LDL cholesterol, calculated 82 mg/dL 0-130 [facility] GOY[facility] NSUS REPOR T RECOM MENDA TIONS FOR LDL: ADULT CHILD LOW RISK <130 <110 (OPTI MAL LDL) <100 ----- WILMAN RLINE : 130-1 59 ----- HIGH RISK: >160 >130 A TRIGL YCERI DE RESUL T >400 INVAL IDATE S THE CALCU LATIO N FOR LDL FRACT IONAT ION - THE LDL RESUL T WILL NOT BE REPOR RICHI. Not Available [facility] (Lab) [address] [place], [address], 02/07/2023 14:19:03 02/08/20 23 02/07/2023 HEPAT IC/LI PAVITHRA PANEL alkaline phosphatase 57 U/L 38-126 Not Available [facility] (Lab) [address] [place], [address], 02/07/2023 14:19:08 02/08/20 23 02/07/2023 HEPAT IC/LI PAVITHRA PANEL alanine aminotransfe rase 12 U/L 0-35 Not Available [facility] (Lab) [address] [place], [address], 02/07/2023 14:19:08 02/08/20 23 02/07/2023 HEPAT IC/LI PAVITHRA PANEL aspartate aminotransfe rase 24 U/L 15-37 Not Available [facility] (Lab) [address] [place], [address], 02/07/2023 14:19:08 02/08/20 23 02/07/2023 HEPAT IC/LI PAVITHRA PANEL bilirubin, total 0.40 mg/dL 0.20-1 .30 Not Available [facility] (Lab) [address] [place], [address], 02/07/2023 14:19:08 02/08/20 23 02/07/2023 HEPAT IC/LI PAVITHRA PANEL bilirubin, conjugated (direct) 0.00 mg/dL 0.00-0 .30 Not Available [facility] (Lab) [address] [place], [address], 02/07/2023 14:19:08 02/08/20 23 02/07/2023 HEPAT IC/LI PAVITHRA PANEL biliurubin,u ncong. (indirect) 0.20 mg/dL 0.00-1 .1 Not Available [facility] (Lab) [address] [place], [address], 02/07/2023 14:19:08 02/08/20 23 02/07/2023 HEPAT IC/LI PAVITHRA PANEL total protein 6.6 g/dL 6.3-8. 2 Not Available [facility] (Lab) [address] [place], [address], 02/07/2023 14:19:08 02/08/20 23 02/07/2023 HEPAT IC/LI PAVITHRA PANEL albumin 4.1 g/dL 3.0-4. 4 Not Available [facility] (Lab) [address] [place], [address], 02/07/2023 14:19:08 02/08/20 23 02/07/2023 HEPAT IC/LI PAVITHRA PANEL globulin 2.5 g/dL 2.6-4. 2 low Not Available [facility] (Lab) [address] [place], [address], 02/07/2023 14:19:08 02/08/20 23 02/07/2023 HEPAT IC/LI PAVITHRA PANEL A/G ratio 1.6 ratio 1.0-2. 0 Not Available [facility] (Lab) [address] [place], [address], 02/07/2023 14:19:08 02/08/20 23 02/07/2023 BASIC METAB OLIC PANEL sodium 142 mmol/ L 137-14 5 Not Available [facility] (Lab) [address] [place], [address], 02/07/2023 14:19:13 02/08/20 23 02/07/2023 BASIC METAB OLIC PANEL potassium 4.3 mmol/ L 3.5-5. 1 Not Available [facility] (Lab) [address] [place], [address], 02/07/2023 14:19:13 02/08/20 23 02/07/2023 BASIC METAB OLIC PANEL chloride 108 mmol/ L 98-107 high Not Available [facility] (Lab) [address] [place], [address], 02/07/2023 14:19:13 02/08/20 23 02/07/2023 BASIC METAB OLIC PANEL carbon dioxide 26 mmol/ L 22-30 Not Available [facility] (Lab) [address] [place], [address], 02/07/2023 14:19:13 02/08/20 23 02/07/2023 BASIC METAB OLIC PANEL anion gap 12.3 mmol/ L 14-22 low Not Available [facility] (Lab) [address] [place], [address], 02/07/2023 14:19:13 02/08/20 23 02/07/2023 BASIC METAB OLIC PANEL glucose 95 mg/dL 70-99 Not Available [facility] (Lab) [address] [place], [address], 02/07/2023 14:19:13 02/08/2002/07/2023 BASIC METAB OLIC PANEL BUN 25 mg/dL 8-19 high Not Available [facility] (Lab) [address] [place], [address], 02/07/2023 14:19:13 02/08/2002/07/2023 BASIC METAB OLIC PANEL creatinine 1.00 mg/dL 0.66-1 .25 Not Available [facility] (Lab) [address] [place], [address], 02/07/2023 14:19:13 02/08/2002/07/2023 BASIC METAB OLIC PANEL GFR 53 Refer ence Range : [place] GFR Healt hy Adult : >60 mL/mi n/1.7 3 m2 Chron ic Kidne y Disea se: 15-60 mL/mi n/1.7 3 m2 Kidne y Failu re: <15/m L/min /1.73 m2 www.n iddk. nih.g ov The MDRD study equat ion has not been valid ated in child laquita <18 years of age; pregn ant women ; the elder ly >85 years of age; or in some racia l or ethni c subgr oups, such as Hisnd nics. Outsi de the valid ated pantera eters , estim ated GFR is less accur ate, requi ring clini delia judgm ent on a case- by-ca se basis . Clini delia inter preta tion for other races and ages must be made by the clini lauren. The MDRD study equat ion has not been valid ated for the evalu ation of serum creat inine relat ed to nutri rain l statu s or medic ation usage . For perso ns <18 years of age, a pedia tric GFR calcu lator is avail able on the [facility] websi te: https :[email or web address] reina.barby samayoa.o milana/pr ofess ional s/kdo qi/gf r_cal culat or Not Available [facility] (Lab) [address] [place], [address], 02/07/2023 14:19:13 02/08/2002/07/2023 BASIC METAB OLIC PANEL calcium 9.2 mg/dL 8.4-10 .2 Not Available [facility] (Lab) [address] [place], [address], 02/07/2023 14:19:13 07/24/2007/24/2023 BASIC METAB OLIC PANEL sodium 138 mmol/ L 137-14 5 Not Available [facility] (Lab) [address] [place], [address], 07/24/2023 20:56:16 07/24/2007/24/2023 BASIC METAB OLIC PANEL potassium 4.3 mmol/ L 3.5-5. 1 Not Available [facility] (Lab) [address] [place], [address], 07/24/2023 20:56:16 07/24/20 23 07/24/2023 BASIC METAB OLIC PANEL chloride 104 mmol/ L 98-107 Not Available [facility] (Lab) [address] [place], [address], 07/24/2023 20:56:16 07/24/20 23 07/24/2023 BASIC METAB OLIC PANEL carbon dioxide 29 mmol/ L 22-30 Not Available [facility] (Lab) [address] [place], [address], 07/24/2023 20:56:16 07/24/20 23 07/24/2023 BASIC METAB OLIC PANEL anion gap 9.3 mmol/ L 14-22 low Not Available [facility] (Lab) [address] [place], [address], 07/24/2023 20:56:16 07/24/2007/24/2023 BASIC METAB OLIC PANEL glucose 89 mg/dL 70-99 Not Available [facility] (Lab) [address] [place], [address], 07/24/2023 20:56:16 07/24/2007/24/2023 BASIC METAB OLIC PANEL BUN 18 mg/dL 8-19 Not Available [facility] (Lab) [address] [place], [address], 07/24/2023 20:56:16 07/24/2007/24/2023 BASIC METAB OLIC PANEL creatinine 0.86 mg/dL 0.66-1 .25 Not Available [facility] (Lab) [address] [place], [address], 07/24/2023 20:56:16 07/24/2007/24/2023 BASIC METAB OLIC PANEL GFR >60 Refer ence Range : [place] GFR Healt hy Adult : >60 mL/mi n/1.7 3 m2 Chron ic Kidne y Disea se: 15-60 mL/mi n/1.7 3 m2 Kidne y Failu re: <15/m L/min /1.73 m2 www.n iddk. nih.g ov The MDRD study equat ion has not been valid ated in child laquita <18 years of age; pregn ant women ; the elder ly >85 years of age; or in some racia l or ethni c subgr oups, such as Hisnd nics. Outsi de the valid ated pantera eters , estim ated GFR is less accur ate, requi ring clini delia judgm ent on a case- by-ca se basis . Clini delia inter preta tion for other races and ages must be made by the clini lauren. The MDRD study equat ion has not been valid ated for the evalu ation of serum creat inine relat ed to nutri rain l statu s or medic ation usage . For perso ns <18 years of age, a pedia tric GFR calcu lator is avail able on the [facility] websi te: https ://ww w.kid danita.o rg/pr husamess ional s/kdo qi/gf r_cal culat or Not Available [facility] (Lab) [address] [place], [address], 07/24/2023 20:56:16 07/24/20 23 07/24/2023 BASIC METAB OLIC PANEL calcium 9.5 mg/dL 8.4-10 .2 Not Available [facility] (Lab) [address] [place], [address], 07/24/2023 20:56:16 07/24/20 23 07/24/2023 LIPID PANEL cholesterol 169 mg/dL 140-19 9 [facility] GOYO NSUS RECOM MENDA TION FOR MICHELLE STERO L: ADULT CHILD LOW RISK: <200 <170 BORDE RLINE : <200- 239 ----- HIGH RISK: >240 >200 Not Available [facility] (Lab) [address] [place], [address], 07/24/2023 20:56:21 07/24/20 23 07/24/2023 LIPID PANEL triglyceride s 149 mg/dL 0-150 [facility] GOY[facility] NSUS REPOR T RECOM MENDA TION FOR TRIGL YCERI ATIF: ADULT CHILD LOW RISK: <150 ----- BODER LINE: 150-1 99 ----- HIGH RISK: >200 ----- Not Available [facility] (Lab) [address] [place], [address], 07/24/2023 20:56:21 07/24/20 23 07/24/2023 LIPID PANEL HDL cholesterol 50 mg/dL 40- Not Available [facility] (Lab) [address] [place] [address], [address], 07/24/2023 20:56:21 07/24/20 23 07/24/2023 LIPID PANEL LDL cholesterol, calculated 89 mg/dL 0-130 [facility] NSUS REPOR T RECOM MENDA TIONS FOR LDL: ADULT CHILD LOW RISK <130 <110 (OPTI MAL LDL) <100 ----- WILMAN RLINE : 130-1 59 ----- HIGH RISK: >160 >130 A TRIGL YCERI DE RESUL T >400 INVAL IDATE S THE CALCU LATIO N FOR LDL FRACT IONAT ION - THE LDL RESUL T WILL NOT BE REPOR RICHI. Not Available [facility] (Lab) [address] [place], [address], 07/24/2023 20:56:21 07/24/2007/24/2023 HEPAT IC/LI PAVITHRA PANEL alkaline phosphatase 59 U/L 38-126 Not Available [facility] (Lab) [address] [place], [address], 07/24/2023 20:56:26 07/24/2007/24/2023 HEPAT IC/LI PAVITHRA PANEL alanine aminotransfe rase 13 U/L 0-35 Not Available [facility] (Lab) [address] [place], [address], 07/24/2023 20:56:26 07/24/2007/24/2023 HEPAT IC/LI PAVITHRA PANEL aspartate aminotransfe rase 29 U/L 15-37 Not Available [facility] (Lab) [address] [place], [address], 07/24/2023 20:56:26 07/24/2007/24/2023 HEPAT IC/LI PAVITHRA PANEL bilirubin, total 0.70 mg/dL 0.20-1 .30 Not Available [facility] (Lab) [address] [place], [address], 07/24/2023 20:56:26 07/24/2007/24/2023 HEPAT IC/LI PAVITHRA PANEL bilirubin, conjugated (direct) 0.00 mg/dL 0.00-0 .30 Not Available [facility] (Lab) [address] [place], [address], 07/24/2023 20:56:26 07/24/2007/24/2023 HEPAT IC/LI PAVITHRA PANEL biliurubin,u ncong. (indirect) 0.30 mg/dL 0.00-1 .1 Not Available [facility] (Lab) [address] [place], [address], 07/24/2023 20:56:26 07/24/2007/24/2023 HEPAT IC/LI PAVITHRA PANEL total protein 7.0 g/dL 6.3-8. 2 Not Available [facility] (Lab) [address] [place], [address], 07/24/2023 20:56:26 07/24/2007/24/2023 HEPAT IC/LI PAVITHRA PANEL albumin 4.3 g/dL 3.0-4. 4 Not Available [facility] (Lab) [address] [place], [address], 07/24/2023 20:56:26 07/24/20 23 07/24/2023 HEPAT IC/LI PAVITHRA PANEL globulin 2.7 g/dL 2.6-4. 2 Not Available [facility] (Lab) [address] [place], [address], 07/24/2023 20:56:26 07/24/20 23 07/24/2023 HEPAT IC/LI PAVITHRA PANEL A/G ratio 1.6 ratio 1.0-2. 0 Not Available [facility] (Lab) [address] [place], [address], 07/24/2023 20:56:26 11/23/19 23 11/23/2022 MRI, lumba r spine , w/o contr ast No observ ation record ed. [id number] [facility] [address], [place], [address], 11/29/2022 08:14:51 Result Notes None recorded. Problems Name Problem SNOMED Code Status Onset Date Resolution Date Notes Provider Name and Address Organization Details Recorded Time Strain of back muscle 398113830 Completed Not Available [facility] 3 08:09:45 Low back pain 427226382 Completed Not Available [facility] 3 08:09:45 Knee pain Completed Not Available [facility] 3 08:09:46 Blood in urine 02350717 Completed Not Available [facility] 3 08:09:46 Sinusitis 90090403 Completed Not Available [facility] 3 08:09:46 Hypertens sydney disorder 00635317 Completed Not Available [facility] 3 08:09:46 Tinea cruris 309911225 Completed Not Available [facility] 3 08:09:46 Contact dermatiti s 30440749 Completed Not Available [facility] 3 08:09:46 Hematoche dev 952460227 Completed Not Available [facility] 3 08:09:46 Itching 560682590 Completed Not Available [facility] 3 08:09:46 Acute urinary tract infection 465908358 Completed Not Available [facility] 3 08:09:47 Hand pain 66356219 Completed Not Available [facility] 3 08:09:47 Inflammat ion of sacroilia c joint 80625405 Active Not Available [facility] 4 10:37:35 Hyperlipi demia 24706668 Active Not Available [facility] 4 10:37:35 Essential hypertens ion 28084551 Active Not Available [facility] 4 10:37:35 Otitis media 30888830 Completed Not Available [facility] 3 08:09:47 Granuloma annulare 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 Completed Not Available [facility] 3 08:09:47 Urinary tract infectiou s disease 83716875 Completed Not Available [facility] 3 08:09:48 Fatigue 34231774 Completed Not Available [facility] 3 08:09:48 Spondylos is 5189908 Completed Not Available [facility] 3 08:09:48 Heart murmur 24701361 Active Not Available [facility] 4 10:37:35 Kidney disease 33336814 Active Not Available [facility] 4 10:37:35 Localized , 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 Procedures Surgical History Date Name Laterality Status Provider Name and Address Organization Details Recorded Time 08/06 esophagogastroduodenoscopy completed Gerardo Hernandez NP [address] [facility] [address], [address] , [facility] [employer] [facility] 3 16:30:59 Hysterectomy completed Not Available [facility] 3 08:05:37 Breast Biopsy completed Not Available [facility] 3 08:05:37 Tonsillectomy and/or Adenoidectomy completed Not Available [facility] 3 08:05:37 Cataract Surgery completed Not Available [facility] 3 08:05:37 Hernia Repair completed Not Available [facility] 3 08:05:37 Colonoscopy completed Not Available [facility] 3 08:05:37 Imaging Results None recorded. Procedure Notes None recorded. Medical Equipment None Reported. Allergies Allergen ID Allergen Name Allergen Category Reaction Reaction Severity Criticality Documentation Date Start Date Code Code System Note Provider Name and Address Organization Details Recorded Time Substance with sulfonami de structure and antibacte rial mechanism of action (substanc e) medicatio n rash Not available Not available 11/29/2022 [id number] SNOMED Not Available [facility] 3 08:14:40 Medications Name Sig Start Date Stop Date Status Note LastModified by Organization Details LastModified Time losartan 50 mg tablet Take 1 tablet every day by oral route. active Not Available Not Available No t Available fluconazo le 100 mg tablet Take 1 tablet every day by oral route. active Not Available Not Available No t Available doxycycli ne hyclate 100 mg capsule Take 1 capsule twice a day by oral route for 14 days. 01/04 completed Not Available Not Available Not Available ketoconaz ole 200 mg tablet Take 1 tablet every day by oral route. active Not Available Not Available No t Available fluconazo le 150 mg tablet Take 1 tablet every day by oral route. active Not Available Not Available No t Available valacyclo vir 1 gram tablet Take 1 tablet every 12 hours by oral route as needed for 2 days. 01/10 completed Not Available Not Available Not Available hydrocodo ne 5 mg-acetam inophen 325 mg tablet 01/10 completed Not Available Not Available Not Available Medrol (Johnathon) 4 mg tablets in a dose pack Use as directed . 12/18 completed Not Available Not Available Not Available Pyridium 200 mg tablet Take 1 tablet 3 times a day by oral route as needed for 3 days. active Not Available Not Available No t Available clobetaso l 0.05 % topical cream APPLY A THIN LAYER TO THE AFFECTED AREA(S) BY TOPICAL ROUTE 2 TIMES PER DAY 12/18 completed Not Available Not Available Not Available phentermi ne 37.5 mg tablet Take 1 tablet every day by oral route. 09/20 completed Not Available Not Available Not Available Aspir-Low 81 mg tablet,de layed release Take 1 tablet every day by oral route. 2014 active Not Available Not Available Not Avai lable levofloxa jazlyn 250 mg tablet Take 1 tablet every day by oral route as directed for 5 days. active Not Available Not Available No t Available amlodipin e 5 mg tablet Take 1 tablet every day by oral route. active Not Available Not Available No t Available acyclovir 400 mg tablet 1 tab po q 8 hours for 7 days prn outbreak active Not Available Not Available No t Available tramadol 50 mg tablet Take 1 po daily as needed active Not Available Not Available No t Available amoxicill in 875 mg tablet Take 1 tablet twice a day by oral route for 10 days. active Not Available Not Available No t Available amlodipin e 10 mg tablet TAKE 1 TABLET BY MOUTH EVERY DAY active Not Available Not Available No t Available Tylenol 500 mg tablet Take 2 tablets every day by oral route at bedtime. 2017 active FOR HER PAIN Not Available Not Available Not Available cephalexi n 500 mg capsule Take 1 capsule 3 times a day by oral route for 7 days. 02/01 completed Not Available Not Available Not Available simvastat in 20 mg tablet TAKE 1 TABLET BY MOUTH EVERYDAY AT BEDTIME active Not Available Not Available No t Available erythromy jazlyn 5 mg/gram (0.5 %) eye ointment 10/10 completed Not Available Not Available Not Available clotrimaz ole-betam ethasone 1 %-0.05 % topical cream APPLY TO THE AFFECTED AND SURROUND ING AREAS OF SKIN BY TOPICAL ROUTE 2 TIMES PER DAY IN THE MORNING AND EVENING FOR 2 WEEKS active Not Available Not Available No t Available lisinopri l 10 mg tablet Take 1 tablet every day by oral route. 2013 active INCREASE FROM 5 MG Not Available Not Available Not Available losartan 25 mg tablet TAKE ONE TABLET BY MOUTH ONCE DAILY 11/25 completed Not Available Not Available Not Available lisinopri l 5 mg tablet Take 1 tablet every day by oral route. active Not Available Not Available No t Available furosemid e 20 mg tablet Take 1 tablet every day by oral route as needed. 01/10 completed Not Available Not Available Not Available clobetaso l 0.05 % topical ointment active PRN Not Available Not Available Not Available polyethyl yoli glycol 3350 17 gram/dose oral powder active Not Available Not Available Not Available Cipro 250 mg tablet Take 1 tablet twice a day by oral route for 3 days. 11/01 completed Not Available Not Available Not Available fluocinon arlet 0.05 % topical cream active Not Available Not Available Not Available losartan 100 mg tablet TAKE 1 TABLET BY MOUTH EVERY DAY active Not Available Not Available No t Available mometason e 0.1 % topical cream APPLY A THIN LAYER TO THE AFFECTED AREA(S) BY TOPICAL ROUTE ONCE DAILY active Not Available Not Available No t Available amoxicill in 875 mg-potass ium clavulana te 125 mg tablet Take 1 tablet every 12 hours by oral route. active Not Available Not Available No t Available cyclobenz aprine 5 mg tablet Take 1 tablet 3 times a day by oral route as needed. 10/10 completed Not Available Not Available Not Available Vigamox 0.5 % eye drops 08/19 completed Not Available Not Available Not Available clobetaso l-emollie nt 0.05 % topical cream active Not Available Not Available Not Available Crestor 5 mg tablet active Not Available Not Available No t Available TriLyte With Flavor Packets 420 gram oral solution 04/28 completed Not Available Not Available Not Available nitrofura ntoin monohydra te/macroc rystals 100 mg capsule active Not Available Not Available Not Available B Complex 1 PO QD 01/10 completed Not Available Not Available Not Available Claritin 1 po qd 10/10 completed Not Available Not Available Not Available Calcium 500 + D 1 po qd 2013 active Not Available Not Available Not Avai lable Allergy and Congestio n Relief 1 po qd 2013 active Not Available Not Available Not Avai lable diclofena c 1 % topical gel APPLY 2 GRAMS TO THE AFFECTED AREA(S) BY TOPICAL ROUTE 4 TIMES PER DAY TO KNEES active Not Available Not Available No t Available turmeric (bulk) daily 01/10 completed Not Available Not Available Not Available Probiotic 1 po qd 01/10 completed Not Available Not Available Not Available Method [email or web address] COVID-19 Vaccine (PF) 30 mcg/0.3 mL IM susp (purple) ADMINIST ER 0.3ML IN THE MUSCLE DIRECTED 09/20 completed Not Available Not Available Not Available Vitals Date Recorded Body mass index (BMI) Body height Oxygen saturation Oxygen saturation in Arterial blood by Pulse oximetry Heart rate Respiratory rate Body temperature Body weight Systolic And Diastolic Provider Name and Address Organization Details Last Updated DateTime 3 32.1 kg/m2 160.02 cm 98 % 98 % 73 /min 16 /min 97.9 [degF] 58113.3 g 149/75 mm[Hg] Not Available [facility] 3 08:06:38 Date Recorded Body height Body mass index (BMI) Body weight Body temperature Heart rate Respiratory rate Oxygen saturation Oxygen saturation in Arterial blood by Pulse oximetry Pain severity - 0-10 verbal numeric rating [Score] - Reported Systolic And Diastolic Provider Name and Address Organization Details Last Updated DateTime 3 160.02 cm 32.3 kg/m2 91855.5 6 g 97.5 [degF] 72 /min 16 /min 96 % 96 % 0 158/78 mm[Hg] Aziza Deluca RN [facility] 3 12:39:41 Date Recorded Body height Body mass index (BMI) Body weight Body temperature Heart rate Respiratory rate Oxygen saturation Oxygen saturation in Arterial blood by Pulse oximetry Pain severity - 0-10 verbal numeric rating [Score] - Reported Systolic And Diastolic Provider Name and Address Organization Details Last Updated DateTime 3 160.02 cm 32.1 kg/m2 52715.3 2 g 96.6 [degF] 71 /min 20 /min 90 % 90 % 2 146/76 mm[Hg] Aziza Deluca RN [facility] 3 14:12:42 Date Recorded Body height Provider Name an d Address Organization Details Last Updated DateTime 07/24/2023 160.02 cm Aziza Deluca RN [facility] 07/27/2023 10:56:18 Social History Question Answer Notes LastModified by Organization Details LastModified Time Tobacco Smoking Status Never Smoker Not Available [facility] 11/29/2022 08:05:03 Do You Have An Advance Directive? No MIGRATION.0301 [id number] Information not available 11/29/2022 Are You Blind Or Do You Have Difficulty Seeing? No MIGRATION.0301 [id number] Information not available 11/29/2022 Is Blood Transfusion Acceptable In An Emergency? Yes Information not available 01/10/2023 What Is Your Level Of Caffeine Consumption? Moderate MIGRATION.0301 [id number] Information not available 11/29/2022 How Much Tobacco Do You Chew? None MIGRATION.0301 [id number] Information not available 11/29/2022 What Is Your Code Status? Full Code Does Not Want To Be Brain And Alive Information not available 01/10/2023 In The 14 Days Before Symptom Onset, Have You Had Close Contact With A Laboratory-an chavezed COVID-19 While That Case Was Ill? No Information not available 01/10/2023 In The 14 Days Before Symptom Onset, Have You Had Close Contact With A Person Who Is Under Investigation For COVID-19 While That Person Was Ill? No Information not available 01/10/2023 Are You Deaf Or Do You Have Serious Difficulty Hearing? No MIGRATION.0301 [id number] Information not available 11/29/2022 What Type Of Diet Are You Following? REGULAR MIGRATION.0301 [id number] Information not available 11/29/2022 Which Illicit Or Recreational Drugs Have You Used? None MIGRATION.0301 017182 Information not available 11/29/2022 What Is The Highest Grade Or Level Of School You Have Completed Or The Highest Degree You Have Received? [id number] Information not available 01/10/2023 Have There Been Any Changes To Your Family Or Social Situation? No Information not available 07/18/2023 Do You Use Insect Repellent Routinely? No MIGRATION.0301 [id number] Information not available 11/29/2022 Where Do You Live? SingleLevelHouse With Basement MIGRATION.0301 [id number] Information not available 11/29/2022 Do You Have A Medical Power Of [place]? No MIGRATION.0301 568360 Information not available 11/29/2022 What Was The Date Of Your Most Recent Tobacco Screening? 10/09/2022 MIGRATION.0301 811246 Information not available 11/29/2022 How Many Children Do You Have? 3 Information not available 07/18/2023 Do You Have Any Pets? No Information not available 01/10/2023 What Is Your Relationship Status? Information not available 07/18/2023 Do You Use Your Seat Belt Or Car Seat Routinely? Yes Information not available 01/10/2023 Do You Have Smoke And Carbon Monoxide Detectors In Your Home? Yes MIGRATION.0301 938386 Information not available 11/29/2022 Are There Any Smokers In Your House? No Information not available 01/10/2023 Do You Participate In Social Media? No Information not available 01/10/2023 Do You Use Sunscreen Routinely? No MIGRATION.0301 178686 Information not available 11/29/2022 Has Tobacco Cessation Counseling Been Provided? No MIGRATION.0301 315683 Information not available 11/29/2022 Have You Recently Traveled Abroad? No Information not available 01/10/2023 Do You Have Difficulty Walking Or Climbing Stairs? No MIGRATION.0301 648771 Information not available 11/29/2022 Do You Have Any Dietary Restrictions? No MIGRATION.0301 613951 Information not available 11/29/2022 Sex: Unknown Functional Status Question Answer Note LastModified by Organizat ion Details LastModified Time Do you or have you ever used any other forms of tobacco or nicotine? No MIGRATION.01912 65516 Information not available 11/29/2022 What is your level of alcohol consumption? None MIGRATION.75279 00092 Information not available 11/29/2022 Do you have transportation difficulties? No MIGRATION.81521 63850 Information not available 11/29/2022 Are you able to walk independently without assistance or assistive devices? YESWOREST MIGRATION.21973 54914 Information not available 11/29/2022 Do you have difficulty doing errands alone? No MIGRATION.62529 86807 Information not available 11/29/2022 Are you able to care for yourself independently? Yes MIGRATION.60739 21930 Information not available 11/29/2022 What is your occupation? Retired MIGRATION.79052 09711 Information not available 11/29/2022 Do you have difficulty dressing, bathing, grooming, or toileting? No MIGRATION.27294 20588 Information not available 11/29/2022 What is your exercise level? Occasional active lifestyle MIGRATION.31266 69387 Information not available 11/29/2022 Mental Status Question Answer Note LastModified by Organizat ion Details LastModified Time Do you feel stressed (tense, restless, nervous, or anxious, or unable to sleep at night)? [id number] Information not available 07/18/2023 Do you have difficulty concentrating, remembering or making decisions? No MIGRATION.[id number] 26 Information not available 11/29/2022 Family History Relationship Description Onset Age of this Age Resolved Age Notes LastModified by Organization Details LastModified Time Father Malignant neoplasm of lung MIGRATION.764 [id number] Not available 11/29/2022 08:05:39 Brother Hyperlipidem ia MIGRATION.722 [id number] Not available 11/29/2022 08:05:39 Brother Malignant neoplasm of urinary bladder MIGRATION.261 [id number] Not available 11/29/2022 08:05:39 Paternal Uncle Malignant neoplasm of colon MIGRATION.349 [id number] Not available 11/29/2022 08:05:39 Paternal Aunt Malignant neoplasm of colon MIGRATION.141 [id number] Not available 11/29/2022 08:05:39 Medical History Condition Response ARTHRITIS Y ALLERGIES/HAYFEVER Y HIGH CHOLESTEROL / HYPERLIPIDEMIA Y DEPRESSION (INCLUDING POST ) Y HYPERTENSION Y ANXIETY DISORDER Y Gynecological History Statement/Question Response Date of Last Pap Smear Date of Last Colonoscopy Most Recent Mammogram Date of LMP Most Recent Bone Density Obstetrics History GPAL:G 0 P 0 0 0 0 Immunizations Vaccine Type Date Status Note Provider Nam e and Address Organization Details Recorded Time zoster recombinant 3 completed CYNDEE Calles, [facility] 07/18/2023 14:09:37 zoster recombinant 4 completed Aziza Hernandez NP [address] [facility] [address], [place], [address], [facility] [employer] [facility] 10/10/2023 08:00:29 Influenza, split virus, quadrivalent, PF 3 completed Aziza Deluca RN null, [facility] 07/18/2023 15:17:40 Influenza, split virus, trivalent, preservative 3 completed CYNDEE Calles, [facility] 07/18/2023 14:09:37 SARS-COV-2 (COVID-19) vaccine, UNSPECIFIED 1 completed Aziza Deluca RN null, [facility] 07/18/2023 14:09:37 SARS-COV-2 (COVID-19) vaccine, UNSPECIFIED 1 completed CYNDEE Calles, [facility] 07/18/2023 14:09:37 SARS-COV-2 (COVID-19) vaccine, UNSPECIFIED 1 completed CYNDEE Calles, [facility] 07/18/2023 14:09:37 Influenza, split virus, quadrivalent, preservative 1 completed Aziza Deluca RN null, [facility] 07/18/2023 14:09:37 Influenza, split virus, quadrivalent, preservative 0 completed Aziza Deluca RN null, [facility] 07/18/2023 14:09:37 Influenza, split virus, quadrivalent, preservative 9 completed Aziza Deluca RN null, [facility] 07/18/2023 14:09:37 Influenza, split virus, trivalent, preservative 5 completed Aziza Deluca RN null, [facility] 07/18/2023 14:09:37 Pneumococcal conjugate PCV 13 2 completed Aziza Deluca RN null, [facility] 07/18/2023 14:09:37 Td (adult), 2 Lf tetanus toxoid, preservative free, adsorbed 7 completed Aziza Deluca RN null, [facility] 07/18/2023 14:09:37 Influenza, high-dose, quadrivalent, PF 2 completed Aziza Deluca RN null, [facility] 07/18/2023 14:09:37 Influenza, high-dose, trivalent, PF 8 completed Aziza Deluca RN null, [facility] 07/18/2023 14:09:37 Influenza, high-dose, trivalent, PF 7 completed Aziza Deluca RN null, [facility] 07/18/2023 14:09:37 Influenza, high-dose, trivalent, PF 6 completed Aziza Deluca RN null, [facility] 07/18/2023 14:09:37 Influenza, high-dose, trivalent, PF 5 completed Aziza Deluca RN null, [facility] 07/18/2023 14:09:37 Influenza, split virus, trivalent, PF 4 completed Aziza Deluca RN [facility], [place] [facility] 07/18/2023 14:09:37 Past Encounters Encounter ID Performer Location Encounter Start Date Encounter Closed Date Diagnosis/Indication Diagnosis SNOMED-CT Code Diagnosis ICD10 Code Diagnosis IMO Codes Diagnosis Note [id number] Alexandro Quick MD [facility] [place] [address] [facility], [place] [address] 04/12/2021 00:00:00 04/12/2021 15:44:18 [id number] Venkatesh Tian MD [facility] [address] [place] [address] 04/18/2021 00:00:00 04/18/2021 09:34:36 [id number] [facility] [address] [place] [address] 09/20/2021 00:00:00 09/20/2021 12:49:59 [id number] Venkatesh Tian MD [facility] [address] [place] [address] 10/26/2021 00:00:00 10/26/2021 11:08:10 [id number] Venkatesh Tian MD [facility] [place] [address] [place] [address] 01/19/2022 00:00:00 01/19/2022 12:50:11 [id number] [facility] [address] [place] [address] 04/04/2022 00:00:00 04/04/2022 15:21:28 [id number] Venkatesh Tian MD [facility] [address] [place] [address] 04/05/2022 00:00:00 04/05/2022 14:02:40 [id number] Aziza Hernandez NP [facility] [address] [place] [address] 05/25/2022 00:00:00 05/25/2022 13:03:58 [id number] Aziza Hernandez NP [address] [address] 05/30/2022 00:00:00 05/31/2022 10:25:55 [id number] Venkatesh Tian MD [address] [address] 08/01/2022 00:00:00 08/01/2022 12:39:17 [id number] Venkatesh Tian MD [address] [address] 10/10/2022 00:00:00 10/10/2022 15:41:10 [id number] Aziza Hernandez NP [address] [address] 01/10/2023 12:24:26 01/10/2023 13:12:22 Essential hypertension 73448308 I10 Amlodipine 10 mg po daily.ASA 81 mg po daily.Losa rtan 100 mg po daily. Hyperlipidemia 02554302 E78.5 Simvastati n 20 mg po nightly. Kidney disease 51305828 N08 Localized, primary osteoarthritis of the ankle and/or foot 526315084 M19.079 Compressio n stockings. Raise feet when sitting. Heart murmur 04086813 R0 1.1 [id number] Aziza Hernandez NP [address] [address] 02/07/2023 08:54:29 02/07/2023 09:21:25 [id number] Aziza Hernandez NP [address] [address] 07/18/2023 13:52:58 07/18/2023 14:55:03 Essential hypertension 81457920 I10 Amlodipine 10 mg po daily.ASA 81 mg po daily.Losa rtan 100 mg po daily. Hyperlipidemia 83129167 E78.5 Simvastati n 20 mg po nightly. Kidney disease 40103872 N08 Labs due Localized, primary osteoarthritis of the ankle and/or foot 217109314 M19.079 Compressio n stockings. Raise feet when sitting. Heart murmur 00145194 R0 1.1 Swallowing painful 75767 002 R13.19 Administra tion of influenza vaccine 09868024 Z23 FLu shot [id number] Aziza Hernandez NP [facility] [address] [address] 07/24/2023 09:40:18 07/24/2023 10:25:51 Health Concerns Section Related Observation LastModified by Organization Detai ls LastModified Time None Recorded Concern Status LastModified by Organization Details LastModified Time None Recorded Advance Directives Directive N: Payers Insurance Date Sequence Insurance Name Policy Number Policy Wood Covered Member ID Wood Member ID Guarantor Name 08/21/2023 1 [place] Gricel Hernandez [id number] Gricel Hernandez 07/24/2023 2 [employer] (MEDICARE SUPPLEMENT) Gricel Hernandez [id number] Gricel Hernandez Notes Date Note Type Note Provider Name and Address Organization Details Recorded Time 01/10/2023 text/html Here for 6 mo fu. Lipid- Not much for diet. Has a lot of time devoted to .HTN- Compression stockings help, can get them on, but can't get them off.CKD- Staying hydrated.Osteoarth ritis- Using heating pad and stopped seeing Dr. Kruse.Heart murmur- Stable. Still further progression of the same conditions had. He is having visual hallucinations. Aziza Hernandez NP [address] [address], [place], [address], [facility] [employer] 01/10/2023 13:11:12 07/18/2023 text/html Here for 6 mo fu. Lipid- Not much for diet. Trying to get back to better eating.HTN- Compression stockings help, can get them on, but can't get them off.CKD- Staying hydrated.Osteoarth ritis- Heating pad. Staying active.Heart murmur- Stable. Sleep- Will be going to new chiro Dr. Bernstein in [place]. Restless legs. Scoliosis. passed in March 2023. Angela is not pleased with the way he passed and no one was there to keep him comfortable. Some discomfort with swallowing. Aziza Hernandez NP [address] [facility] [address], [place], [address], [place] [facility] 07/18/2023 14:48:28 OBGyn Episode No OBEpisode recorded.
--- NOTE | 2025-07-10 08:47 | EST_ITS ---
Patient Info Name: Gricel Hernandez Age: 89 years : 1935 Gender: Female Ht: 63 in Wt: 180 lbs BSA: 1.94 m2 HR: 74 bpm BP: 198 / 86 mmHg Exam Date: 07/10/2025 8:47 AM Patient Status: O Admit Date: 07/10/2025 Exam Type: CA stress michael w NM A regadenoson stress test was performed. Staff Referring Physician: Jenise Flannery Attending Provider: Jenise Flannery Exercise Technologist: Tana Mcguire Exercise Physician: Jean-Claude Muñoz DO Summary 1. 1. Negative lexiscan stress test for ischemic ST changes by ECG criteria. 2. 2. Baseline hypertension. 3. 3. Nuclear scan to follow and will be reported separately. Please correlate with it. 4. 4. Patient informed of the above results. Protocol: Lexiscan Stress ECG Details Stage: REST Duration (min): 0 min : 24 sec HR (bpm): 73 SBP (mmHg): --- DBP (mmHg): --- Stage: REST Duration (min): 10 min : 40 sec HR (bpm): 71 SBP (mmHg): 198 DBP (mmHg): 86 Stage: STAGE 1 Duration (min): 0 min : 59 sec HR (bpm): 93 SBP (mmHg): 198 DBP (mmHg): 86 Stage: RECOVERY Duration (min): 1 min : 0 sec HR (bpm): 86 SBP (mmHg): 164 DBP (mmHg): 71 Stage: RECOVERY Duration (min): 2 min : 0 sec HR (bpm): 81 SBP (mmHg): 164 DBP (mmHg): 71 Stage: RECOVERY Duration (min): 3 min : 0 sec HR (bpm): 82 SBP (mmHg): 156 DBP (mmHg): 73 Stage: RECOVERY Duration (min): 3 min : 5 sec HR (bpm): 82 SBP (mmHg): 156 DBP (mmHg): 73 Rest HR: 71 bpm Peak HR: 94 bpm Rest Sys BP: 198 mmHg Peak Sys BP: 164 mmHg Max Pred HR: 131 bpm % Max Pred HR: 72 % Target HR: 111 bpm Max RPP: 15,416 bpm*mmHg Termination Reason: Completed protocol Cardiac Symptoms: None Total Time: 1 min : 0 sec Rest Meyers BP: 86 mmHg Peak Meyers BP: 71 mmHg Total Dose: 0.4 mg Resting ECG Sinus rhythm. Stress ECG No ST changes. Arrhythmias None. Report Signatures
== END 2025-07-10 08:07 | disposition home or self-care (01) ==
PROVIDERS: PCP Internal Medicine; Visit Provider Nurse Practitioner
DX: R94.39 Abnormal result of other cardiovascular function study (principal); R07.9 Chest pain, unspecified
CPT/HCPCS: 78452; 93017; A9502; J2785